=== PATIENT | female | born 1940 | race Caucasian/White ===

== ENCOUNTER → 2017-06-29 | Outpatient (CLI) | payer MEDICARE ==
[~2017-06-29] MED LIST: CALC-192 PO; CHOL2000 PO; DENO60DI IM; MULT-516 PO
[2017-06-29 15:51] LABS: CULTURE INDICATED? YES; MICROSCOPIC INDICATED
== END ==
LOC: STAR 14:39
PROVIDERS: ATTEND Orthopaedic Surgery
DX: Z01.818 Encounter for other preprocedural examination (principal); M19.011 Primary osteoarthritis, right shoulder
CPT/HCPCS: 81001; 87081; 87086; 93005

== ENCOUNTER 2017-07-04 10:30 | Inpatient (IN) | payer MEDICARE ==
[2017-06-29 15:15] VITALS: BP 134/76
[~2017-07-04] VITALS: Ht 157.5 cm; Wt 77.8 kg
[~2017-07-04 10:30] MED LIST changes: +CLINDAMYCIN 150 MG/ML, 6ML ONE
[2017-07-04] MEDS ORDERED: FENTANYL PF 100 MCG/2ML ONE ×2 (10:59→15:05)
[2017-07-04] MEDS ORDERED: SUCCINYLCHOLINE 20 MG/ML, 10ML ONE (10:59)
[2017-07-04] MEDS ORDERED: CEFAZOLIN 1,000 MG ONE (10:59)
[2017-07-04] MEDS ORDERED: MIDAZOLAM 1 MG/ML, 2ML ONE (10:59)
[2017-07-04] MEDS ORDERED: PROPOFOL 10 MG/ML, 20ML ONE (10:59)
[2017-07-04] MEDS ORDERED: ONDANSETRON 2MG/ML, 2ML ONE ×2 (10:59→16:37)
[2017-07-04] MEDS ORDERED: DEXAMETHASONE 4 MG/ML, 1ML ONE (10:59)
[2017-07-04] MEDS ORDERED: LIDOCAINE-MPF 2% ,5ML ONE (11:00)
[2017-07-04] MEDS ORDERED: BUPIVACAINE/PF 0.5% ONE (11:00)
[2017-07-04] MEDS ORDERED: VANCOMYCIN 1,500 MG in SODIUM CHLORIDE 0.9% 250 ML IV ONE (11:00)
[2017-07-04] MEDS ORDERED: VANCOMYCIN PER PHARMACY MC ONE (11:00)
[2017-07-04] MEDS ORDERED: LACTATED RINGERS 1,000 ML IV SCH (11:13)
[2017-07-04] MEDS ORDERED: LABETALOL 5MG/ML, 20ML ONE (11:13)
[2017-07-04] MEDS ORDERED: LIDOCAINE GEL 2%, 5ML ONE (11:16)
[2017-07-04] MEDS ORDERED: DOXYCYCLINE PO (11:27)
[2017-07-04] MEDS ORDERED: LIDOCAINE 1%, 2ML SQ PRN (11:30)
[2017-07-04] MEDS ORDERED: NEOSTIGMINE 1 MG/ML, 10ML ONE (12:57)
[2017-07-04] MEDS ORDERED: ROCURONIUM 10 MG/ML,10ML ONE (12:57)
[2017-07-04] MEDS ORDERED: PHENYLEPHRINE 10 MG/ML ONE (12:57)
[2017-07-04] MEDS ORDERED: GLYCOPYRROLATE 0.2MG/1ML, 5ML ONE (12:57)
[2017-07-04] MEDS ORDERED: OXYcodone/APAP 5/325MG TABLET PO PRN (13:30)
[2017-07-04] MEDS: HYDROcodone/APAP 5/325 TABLET PO SCH ×3 (13:30→21:30)
[2017-07-04] MEDS ORDERED: SENNA/DOCUSATE TABLET PO PRN (13:30)
[2017-07-04] MEDS ORDERED: morphine SULFATE 10 MG/ML, 1ML IV PRN (13:30)
[2017-07-04] MEDS ORDERED: BISACODYL 10 MG SUPP PR PRN (13:30)
[2017-07-04] MEDS ORDERED: ACETAMINOPHEN 325 MG TABLET PO PRN ×2 (13:30→14:00)
[2017-07-04] MEDS ORDERED: MAGNESIUM HYDROXIDE 8%, 30ML UDC PO PRN (13:30)
[2017-07-04] MEDS ORDERED: hydrALAzine 20 MG/ML, 1ML IV PRN (14:00)
[2017-07-04] MEDS ORDERED: FENTANYL PF 100 MCG/2ML IV PRN (14:00)
[2017-07-04] MEDS ORDERED: OXYcodone 5 MG/5 ML ORAL.SOL UDC PO PRN (14:00)
[2017-07-04] MEDS ORDERED: HYDROmorphone 1 MG/ML, 1ML IV PRN (14:00)
[2017-07-04] MEDS ORDERED: PROMETHAZINE 25 MG/ML, 1ML IV PRN (14:00)
[2017-07-04] MEDS ORDERED: ONDANSETRON 2MG/ML, 2ML IVPush PRN (14:00)
[2017-07-04] MEDS ORDERED: MIDAZOLAM 1 MG/ML, 2ML IV PRN (14:00)
[2017-07-04] MEDS ORDERED: MEPERIDINE/PF 25MG/0.5ML IVPush PRN (14:00)
[2017-07-04] MEDS ORDERED: ALBUTEROL/IPRATROPIUM 2.5MG/0.5MG, 3 ML NPPB PRN (14:00)
[2017-07-04] MEDS ORDERED: LABETALOL 5MG/ML, 20ML IV PRN (14:00)
[2017-07-04] MEDS ORDERED: EPHEDRINE 50 MG/ML, 1ML ONE (14:29)
[2017-07-04] MEDS: ONDANSETRON 2MG/ML, 2ML IV PRN (16:38)
[2017-07-04 17:00] VITALS: BP 122/61
[2017-07-04] MEDS ORDERED: DIPHENHYDRAMINE 50 MG/ML, 1ML IVPush PRN (17:30)
[2017-07-04] MEDS: D5%-0.45% NACL 1,000 ML IV SCH ×2 (18:10→23:35)
[2017-07-04] MEDS: CEFAZOLIN PMX 1GM/50ML 50 ML IVPB SCH (18:17)
[2017-07-04 19:30] VITALS: BP 102/55
[2017-07-04] MEDS: DOCUSATE 100 MG CAPSULE PO SCH (20:03)
[2017-07-04] MEDS: DOXYCYCLINE 100MG TABLET PO SCH (20:03)
[2017-07-04 23:43] VITALS: BP 113/57
[2017-07-05] MEDS: CEFAZOLIN PMX 1GM/50ML 50 ML IVPB SCH ×2 (02:36→09:39)
[2017-07-05] MEDS: HYDROcodone/APAP 5/325 TABLET PO SCH ×6 (02:41→22:21)
[2017-07-05] MEDS: ONDANSETRON 2MG/ML, 2ML IV PRN ×3 (02:41→19:57)
[2017-07-05 03:51] VITALS: BP 109/50
[2017-07-05] MEDS: DOCUSATE 100 MG CAPSULE PO SCH ×2 (07:53→20:09)
[2017-07-05] MEDS: DOXYCYCLINE 100MG TABLET PO SCH ×2 (07:53→20:09)
[2017-07-05] MEDS: D5%-0.45% NACL 1,000 ML IV SCH ×2 (07:54→17:53)
[2017-07-05 08:34] VITALS: BP 104/67
[2017-07-05 14:36] VITALS: BP 112/70
[2017-07-05 19:44] VITALS: BP 126/69
[2017-07-06 01:26] VITALS: BP 113/65
[2017-07-06] MEDS: HYDROcodone/APAP 5/325 TABLET PO SCH ×3 (02:18→11:31)
[2017-07-06] MEDS: ONDANSETRON 2MG/ML, 2ML IV PRN (02:18)
[2017-07-06] MEDS: D5%-0.45% NACL 1,000 ML IV SCH (05:08)
[2017-07-06 08:06] VITALS: BP 107/69
[2017-07-06] MEDS: DOXYCYCLINE 100MG TABLET PO SCH (08:55)
[2017-07-06] MEDS: DOCUSATE 100 MG CAPSULE PO SCH (08:55)
[2017-07-06 12:45] VITALS: BP 114/52
== END 2017-07-06 14:57 | disposition home or self-care (01) | DRG 483 ==
LOC: ORIP 10:30 → 4NOR 17:12 → DCLOUNGE 07-06 11:44
PROVIDERS: ADMIT Orthopaedic Surgery; ATTEND Orthopaedic Surgery
PROC: 0LS30ZZ Reposition Right Upper Arm Tendon, Open Approach (ICD-10-PCS; 2017-07-04)
PROC: 0RPJ04Z Removal of Internal Fixation Device from Right Shoulder Joint, Open Approach (ICD-10-PCS; 2017-07-04)
PROC: 0LQ10ZZ Repair Right Shoulder Tendon, Open Approach (ICD-10-PCS; 2017-07-04)
PROC: 0RRJ00Z Replacement of Right Shoulder Joint with Reverse Ball and Socket Synthetic Substitute, Open Approach (ICD-10-PCS; principal; 2017-07-04 13:30)
DX: M87.821 Other osteonecrosis, right humerus (principal); D69.6 Thrombocytopenia, unspecified; M19.011 Primary osteoarthritis, right shoulder
CPT/HCPCS: C1713; C1776; J0690; J1100; J2250; J2405; J2704; J2710; J3010; J3370; J3490; C1769; J0330; J2370; J7050; J7120

== ENCOUNTER → 2017-10-02 | Outpatient (CLI) | payer MEDICARE ==
[~2017-10-02] MED LIST changes: -CLINDAMYCIN 150 MG/ML, 6ML ONE; +DOXYCYCLINE PO
== END | disposition home or self-care (01) ==
LOC: CFH 12:06
PROVIDERS: ATTEND Genetic Counselor, MS
DX: E04.2 Nontoxic multinodular goiter (principal); R59.1 Generalized enlarged lymph nodes
CPT/HCPCS: 76536

== ENCOUNTER 2017-10-09 10:45 | Day surgery (SDC) | payer MEDICARE ==
[~2017-10-09] VITALS: Ht 157.5 cm; Wt 75.4 kg
[2017-10-09] MEDS ORDERED: SODIUM CHLORIDE 0.9% 1,000 ML IV SCH (11:12)
[2017-10-09 11:39] VITALS: BP 158/80
[2017-10-09] MEDS ORDERED: NALOXONE 1 MG/ML, 2ML ONE (12:10)
[2017-10-09] MEDS ORDERED: FENTANYL PF 100 MCG/2ML ONE (12:10)
[2017-10-09] MEDS ORDERED: FLUMAZENIL 0.1 MG/1 ML, 5ML ONE (12:10)
[2017-10-09] MEDS ORDERED: MIDAZOLAM 1 MG/ML, 5ML ONE ×2 (12:10)
== END 2017-10-09 14:30 ==
LOC: OUT 10:45
PROVIDERS: ATTEND Genetic Counselor, MS
DX: D47.09 Other mast cell neoplasms of uncertain behavior (principal)
CPT/HCPCS: 49180; 77012; 88305; 99156; J2250; J3010; J7030; 99157; J2310

== ENCOUNTER → 2017-11-21 | Outpatient (CLI) | payer MEDICARE ==
[2017-11-21 15:44] LABS: ALANINE AMINOTRANSFERASE 21 U/L (12-78); ALBUMIN 3.5 g/dL (3.4-5.0); ANION GAP 7 mmol/L (5-15); CALCIUM 9.5 mg/dL (8.5-10.1); CHLORIDE 111 mmol/L (98-107); CREATININE 0.87 mg/dL (0.55-1.02)
[2017-11-21 15:46] LABS: ALKALINE PHOSPHATASE 157 U/L (45-117); BILIRUBIN,TOTAL 0.6 mg/dL (0.2-1.0); TOTAL PROTEIN 7.2 g/dL (6.4-8.2)
== END | disposition home or self-care (01) ==
LOC: STAR 14:34
PROVIDERS: ATTEND Surgery
DX: Z01.818 Encounter for other preprocedural examination (principal); I21.9 Acute myocardial infarction, unspecified
CPT/HCPCS: 36415; 80053; 93005

== ENCOUNTER 2017-11-27 10:51 | Observation (INO) | payer MEDICARE ==
[~2017-11-27] VITALS: Ht 160 cm; Wt 74.0 kg
[~2017-11-27 10:51] MED LIST changes: +BUPIVACAINE/PF 0.25% ONE; +CEFAZOLIN 1,000 MG ONE; +FENTANYL PF 250 MCG/5ML ONE; +GLYCOPYRROLATE 0.4 MG/2 ML, 2ML ONE; +MIDAZOLAM 1 MG/ML, 2ML ONE; +NEOSTIGMINE 1 MG/ML, 10ML ONE; +PROPOFOL 10 MG/ML, 20ML ONE; +ROCURONIUM 10MG/ML,5ML ONE; +THROMBIN 5,000 UNIT VIAL TP ONE; +WATER-INJECTION,STERILE 10 ML IV ONE
[2017-11-27] MEDS ORDERED: LACTATED RINGERS 1,000 ML IV SCH (11:06)
[2017-11-27] MEDS ORDERED: hydrALAzine 20 MG/ML, 1ML IV PRN (11:30)
[2017-11-27] MEDS ORDERED: HYDROmorphone 1 MG/ML, 1ML IV PRN (11:30)
[2017-11-27] MEDS ORDERED: PROMETHAZINE 25 MG SUPP PR PRN (11:30)
[2017-11-27] MEDS ORDERED: ONDANSETRON ODT 8 MG PO ONE (11:30)
[2017-11-27] MEDS ORDERED: FENTANYL PF 100 MCG/2ML IV PRN (11:30)
[2017-11-27] MEDS ORDERED: OXYcodone 5 MG/5 ML ORAL.SOL UDC PO PRN (11:30)
[2017-11-27] MEDS ORDERED: LABETALOL 5MG/ML, 20ML IV PRN (11:30)
[2017-11-27] MEDS ORDERED: MORPHINE SULFATE 4 MG/ML, 1ML IVPush PRN (11:30)
[2017-11-27] MEDS ORDERED: MEPERIDINE/PF 25MG/0.5ML IVPush PRN (11:30)
[2017-11-27] MEDS ORDERED: PROMETHAZINE 25 MG/ML, 1ML IV PRN (11:30)
[2017-11-27] MEDS ORDERED: PROMETHAZINE 12.5 MG SUPP PR PRN (11:30)
[2017-11-27] MEDS ORDERED: ONDANSETRON ODT 8 MG PO PRN (11:30)
[2017-11-27] MEDS ORDERED: DEXAMETHASONE 4 MG/ML, 1ML ONE (11:34)
[2017-11-27] MEDS ORDERED: PHENYLEPHRINE 10 MG/ML ONE (12:01)
[2017-11-27] MEDS ORDERED: BUPIVACAINE/PF-EPI 0.25% 1:200K IM ONE (12:07)
[2017-11-27] MEDS ORDERED: ALBUTEROL SULFATE 2.5 MG/3 ML ONE (18:15)
[2017-11-27 20:20] VITALS: BP 123/61
[2017-11-27] MEDS: ACETAMINOPHEN 500 MG TABLET PO SCH (22:00)
[2017-11-27] MEDS ORDERED: ONDANSETRON 2MG/ML, 2ML IVPush PRN (22:00)
[2017-11-27] MEDS ORDERED: ALBUTEROL SULFATE 2.5 MG/3 ML NPPB PRN (22:00)
[2017-11-27] MEDS: IBUPROFEN 200 MG TABLET PO SCH (22:00)
[2017-11-27 23:58] VITALS: BP 119/67
[2017-11-28 03:29] VITALS: BP 104/63
[2017-11-28] MEDS: ACETAMINOPHEN 500 MG TABLET PO SCH ×2 (04:00→08:15)
[2017-11-28] MEDS: IBUPROFEN 200 MG TABLET PO SCH ×2 (06:00→11:00)
[2017-11-28 07:23] VITALS: BP 117/65
[2017-11-28] MEDS ORDERED: ACET-1600 PO (11:39)
[2017-11-28] MEDS ORDERED: IBUP-1222 PO (11:40)
== END 2017-11-28 12:05 | disposition home or self-care (01) ==
LOC: OUT 10:51 → 4NOR 19:15 → OUT 23:32 → 4NOR 23:38 → DCLOUNGE 11-28 11:48
PROVIDERS: ADMIT Surgery; ATTEND Surgery
DX: R59.0 Localized enlarged lymph nodes (principal); E04.2 Nontoxic multinodular goiter
CPT/HCPCS: 39402; 71045; 88184; 88185; 88305; 94640; G0378; J0690; J1100; J2250; J2370; J2704; J2710; J3010; J3490; J7120; Q0162; 96365; 96375

== ENCOUNTER 2018-04-08 14:30 | Emergency (ER) | payer MEDICARE ==
[~2018-04-08] VITALS: Ht 160 cm; Wt 75.0 kg
[~2018-04-08 14:30] MED LIST changes: +ACET-1600 PO; -BUPIVACAINE/PF 0.25% ONE; -CEFAZOLIN 1,000 MG ONE; -FENTANYL PF 250 MCG/5ML ONE; -GLYCOPYRROLATE 0.4 MG/2 ML, 2ML ONE; +IBUP-1222 PO; -MIDAZOLAM 1 MG/ML, 2ML ONE; -NEOSTIGMINE 1 MG/ML, 10ML ONE; -PROPOFOL 10 MG/ML, 20ML ONE; -ROCURONIUM 10MG/ML,5ML ONE; -THROMBIN 5,000 UNIT VIAL TP ONE; -WATER-INJECTION,STERILE 10 ML IV ONE
[2018-04-08 14:45] VITALS: BP 97/55
[2018-04-08] MEDS ORDERED: HYDROmorphone 2 MG/ML, 1ML ONE (15:08)
[2018-04-08] MEDS ORDERED: ONDANSETRON ODT 4 MG ONE (15:08)
[2018-04-08] MEDS ORDERED: ONDANSETRON ODT 4 MG PO ONE (16:00)
[2018-04-08] MEDS ORDERED: HYDROmorphone 2 MG/ML, 1ML IM ONE (16:00)
[2018-04-08] MEDS ORDERED: OXYcodone/APAP 5/325MG TABLET PO ONE (16:00)
[2018-04-08] MEDS ORDERED: OXYcodone/APAP 5/325MG TABLET ONE (16:02)
== END 2018-04-08 16:51 | disposition home or self-care (01) ==
LOC: ED 16:30
DX: S42.232A 3-part fracture of surgical neck of left humerus, initial encounter for closed fracture (principal); W01.0XXA Fall on same level from slipping, tripping and stumbling without subsequent striking against object, initial encounter; Y93.89 Activity, other specified; Y92.009 Unspecified place in unspecified non-institutional (private) residence as the place of occurrence of the external cause; Y99.8 Other external cause status
CPT/HCPCS: 29105; 73030; 73060; 96372; 99284; J1170; Q0162

== ENCOUNTER → 2018-04-09 | Outpatient (CLI) | payer MEDICARE | END | disposition home or self-care (01) | LOC: RAD 18:23 | PROVIDERS: ATTEND Orthopaedic Surgery | DX: S42.295A Other nondisplaced fracture of upper end of left humerus, initial encounter for closed fracture (principal); X58.XXXA Exposure to other specified factors, initial encounter; Y93.89 Activity, other specified; Y92.89 Other specified places as the place of occurrence of the external cause; Y99.8 Other external cause status ==

== ENCOUNTER → 2018-04-18 | Outpatient (CLI) | payer MEDICARE | END | disposition home or self-care (01) | LOC: STAR 10:53 | PROVIDERS: ATTEND Orthopaedic Surgery | DX: Z01.818 Encounter for other preprocedural examination (principal); S42.295A Other nondisplaced fracture of upper end of left humerus, initial encounter for closed fracture; X58.XXXA Exposure to other specified factors, initial encounter; Y93.89 Activity, other specified; Y92.89 Other specified places as the place of occurrence of the external cause; Y99.8 Other external cause status | CPT/HCPCS: 87081; 93005 ==

== ENCOUNTER 2018-04-24 05:18 | Inpatient (IN) | payer MEDICARE ==
[2018-04-18 11:39] VITALS: BP 156/79
[~2018-04-24] VITALS: Ht 160 cm; Wt 78.1 kg
[2018-04-24] MEDS ORDERED: LACTATED RINGERS 1,000 ML IV SCH (06:01)
[2018-04-24] MEDS ORDERED: CLINDAMYCIN 150 MG/ML, 6ML ONE (06:04)
[2018-04-24] MEDS ORDERED: BUPIVACAINE/PF 0.5% ONE ×2 (06:04→07:45)
[2018-04-24] MEDS ORDERED: ACET325C PO (06:04)
[2018-04-24] MEDS ORDERED: FENTANYL PF 100 MCG/2ML ONE (06:24)
[2018-04-24] MEDS ORDERED: MIDAZOLAM 1 MG/ML, 2ML ONE (06:24)
[2018-04-24] MEDS ORDERED: VANCOMYCIN PER PHARMACY MC ONE (06:30)
[2018-04-24] MEDS ORDERED: VANCOMYCIN 1,400 MG in SODIUM CHLORIDE 0.9% 250 ML IV ONE (06:30)
[2018-04-24] MEDS ORDERED: ACETAMINOPHEN 500 MG TABLET PO ONE (06:30)
[2018-04-24] MEDS ORDERED: GABAPENTIN 300 MG CAPSULE PO ONE (06:30)
[2018-04-24] MEDS ORDERED: ONDANSETRON ODT 8 MG PO ONE (06:30)
[2018-04-24] MEDS ORDERED: LIDOCAINE-MPF 1%, 2ML INFIL ONE (06:30)
[2018-04-24] MEDS ORDERED: SCOPOLAMINE PATCH, 1.5MG PATCH.TD72 TD ONE (06:30)
[2018-04-24] MEDS: D5%-0.45% NACL 1,000 ML IV SCH ×2 (06:53→15:43)
[2018-04-24] MEDS ORDERED: MAGNESIUM HYDROXIDE 8%, 30ML UDC PO PRN (07:00)
[2018-04-24] MEDS ORDERED: BISACODYL 10 MG SUPP PR PRN (07:00)
[2018-04-24] MEDS ORDERED: ONDANSETRON 2MG/ML, 2ML IV PRN ×2 (07:00→07:30)
[2018-04-24] MEDS ORDERED: ALUMINUM/MAG/SIMETHICONE 30 ML UDC PO PRN (07:00)
[2018-04-24] MEDS ORDERED: SENNA/DOCUSATE TABLET PO PRN (07:00)
[2018-04-24] MEDS ORDERED: morphine SULFATE 10 MG/ML, 1ML IV PRN (07:00)
[2018-04-24] MEDS ORDERED: ACETAMINOPHEN 325 MG TABLET PO PRN (07:00)
[2018-04-24] MEDS ORDERED: PROMETHAZINE 25 MG/ML, 1ML IM PRN (07:00)
[2018-04-24] MEDS ORDERED: FENTANYL PF 100 MCG/2ML IV PRN (07:30)
[2018-04-24] MEDS ORDERED: hydrALAzine 20 MG/ML, 1ML IV PRN (07:30)
[2018-04-24] MEDS ORDERED: ALBUTEROL/IPRATROPIUM 2.5MG/0.5MG, 3 ML NPPB PRN (07:30)
[2018-04-24] MEDS ORDERED: OXYcodone 5 MG/5 ML ORAL.SOL UDC PO PRN (07:30)
[2018-04-24] MEDS ORDERED: LABETALOL 5MG/ML, 20ML IV PRN (07:30)
[2018-04-24] MEDS ORDERED: MIDAZOLAM 1 MG/ML, 2ML IV PRN (07:30)
[2018-04-24] MEDS ORDERED: HYDROmorphone 1 MG/ML, 1ML IV PRN (07:30)
[2018-04-24] MEDS ORDERED: MEPERIDINE/PF 25MG/0.5ML IVPush PRN (07:30)
[2018-04-24] MEDS ORDERED: PROMETHAZINE 25 MG SUPP PR PRN (07:30)
[2018-04-24] MEDS ORDERED: LIDOCAINE-MPF 2% ,5ML ONE (07:45)
[2018-04-24] MEDS ORDERED: ROCURONIUM 10MG/ML,5ML ONE (08:01)
[2018-04-24] MEDS ORDERED: NEOSTIGMINE 1 MG/ML, 10ML ONE (08:01)
[2018-04-24] MEDS ORDERED: GLYCOPYRROLATE 0.2MG/1ML, 5ML ONE (08:01)
[2018-04-24] MEDS ORDERED: PROPOFOL 10 MG/ML, 20ML ONE (08:01)
[2018-04-24] MEDS ORDERED: DEXAMETHASONE 4 MG/ML, 1ML ONE (08:01)
[2018-04-24] MEDS ORDERED: SUCCINYLCHOLINE 20 MG/ML, 10ML ONE (08:01)
[2018-04-24] MEDS ORDERED: METHYLENE BLUE 10 MG/ML 10ML ONE (08:01)
[2018-04-24] MEDS ORDERED: EPHEDRINE 50 MG/ML, 1ML ONE (08:01)
[2018-04-24] MEDS: DOCUSATE 100 MG CAPSULE PO SCH ×2 (09:00→20:09)
[2018-04-24] MEDS ORDERED: ALBUTEROL/IPRATROPIUM 2.5MG/0.5MG, 3 ML ONE (09:55)
[2018-04-24 10:45] VITALS: BP 126/66
[2018-04-24] MEDS: HYDROcodone/APAP 5/325 TABLET PO SCH ×5 (11:00→23:15)
[2018-04-24 12:22] VITALS: BP 96/48
[2018-04-24] MEDS: CEFAZOLIN PMX 1GM/50ML 50 ML IVPB SCH ×2 (15:04→22:59)
[2018-04-24 16:50] VITALS: BP 104/58
[2018-04-24 20:22] VITALS: BP 101/53
[2018-04-25 00:03] VITALS: BP 134/68
[2018-04-25] MEDS: D5%-0.45% NACL 1,000 ML IV SCH ×2 (02:53→11:55)
[2018-04-25 03:38] VITALS: BP 122/67
[2018-04-25] MEDS: HYDROcodone/APAP 5/325 TABLET PO SCH ×3 (06:39→15:03)
[2018-04-25] MEDS: CEFAZOLIN PMX 1GM/50ML 50 ML IVPB SCH (06:39)
[2018-04-25 07:26] VITALS: BP 110/57
[2018-04-25] MEDS: DOCUSATE 100 MG CAPSULE PO SCH (08:21)
[2018-04-25 12:53] VITALS: BP 109/55
== END 2018-04-25 16:00 | disposition home or self-care (01) | DRG 483 ==
LOC: ORIP 05:18 → 4NOR 10:36
PROVIDERS: ADMIT Orthopaedic Surgery; ATTEND Orthopaedic Surgery
PROC: 0LS40ZZ Reposition Left Upper Arm Tendon, Open Approach (ICD-10-PCS; 2018-04-24)
PROC: 0RRK00Z Replacement of Left Shoulder Joint with Reverse Ball and Socket Synthetic Substitute, Open Approach (ICD-10-PCS; principal; 2018-04-24 07:00)
DX: S42.242A 4-part fracture of surgical neck of left humerus, initial encounter for closed fracture (principal); M19.019 Primary osteoarthritis, unspecified shoulder; W18.39XA Other fall on same level, initial encounter; Y93.89 Activity, other specified; Y92.89 Other specified places as the place of occurrence of the external cause; Y99.8 Other external cause status; J45.909 Unspecified asthma, uncomplicated; M81.0 Age-related osteoporosis without current pathological fracture; Z88.8 Allergy status to other drugs, medicaments and biological substances
CPT/HCPCS: 94640; C1713; C1776; G0378; J0690; J1100; J2250; J2405; J2704; J2710; J3010; J3370; J3490; J7620; Q0162; C1769; J0330; J7050; J7120; Q9968

== ENCOUNTER → 2018-07-23 | Outpatient (CLI) | payer MEDICARE ==
[~2018-07-23] MED LIST changes: +ACET325C3 PO; +OMNIPAQUE 350 MG/ML, 75ML BOTTLE ONE
== END | disposition home or self-care (01) ==
LOC: CFH 14:54
PROVIDERS: ATTEND Genetic Counselor, MS
DX: R59.1 Generalized enlarged lymph nodes (principal)
CPT/HCPCS: 71260; Q9967

== ENCOUNTER 2019-01-28 09:04 | Outpatient (CLI) | payer MEDICARE ==
[~2019-01-28 09:04] MED LIST changes: -OMNIPAQUE 350 MG/ML, 75ML BOTTLE ONE
== END 2019-01-28 23:59 | disposition home or self-care (01) ==
LOC: CFH 09:04
PROVIDERS: ATTEND Dermatology
DX: M89.8X8 Other specified disorders of bone, other site (principal); D48.5 Neoplasm of uncertain behavior of skin; J32.0 Chronic maxillary sinusitis
CPT/HCPCS: 70450

== ENCOUNTER → 2019-06-10 | Outpatient (CLI) | payer MEDICARE ==
[~2019-06-10] MED LIST changes: +OMNIPAQUE 350 MG/ML, 100ML BOTTLE ONE
== END | disposition home or self-care (01) ==
LOC: RAD 11:10
PROVIDERS: ATTEND Neurological Surgery
DX: D33.2 Benign neoplasm of brain, unspecified (principal); J45.909 Unspecified asthma, uncomplicated; M19.90 Unspecified osteoarthritis, unspecified site
CPT/HCPCS: 70496; 78306; A9503; Q9967

== ENCOUNTER → 2019-07-22 | Outpatient (CLI) | payer MEDICARE | END | disposition home or self-care (01) | LOC: CFH 12:03 → EDSTATUS 13:30 | PROVIDERS: ATTEND Internal Medicine Hematology & Oncology | DX: Q82.2 Congenital cutaneous mastocytosis (principal); R59.0 Localized enlarged lymph nodes; K57.30 Diverticulosis of large intestine without perforation or abscess without bleeding; K80.20 Calculus of gallbladder without cholecystitis without obstruction; R16.1 Splenomegaly, not elsewhere classified; D73.89 Other diseases of spleen | CPT/HCPCS: 71260; 74177; 82565; Q9967 ==

== ENCOUNTER → 2019-07-29 | Outpatient (CLI) | payer MEDICARE ==
[~2019-07-29] MED LIST changes: +ANTI HISTAMINE PO; -OMNIPAQUE 350 MG/ML, 100ML BOTTLE ONE
[2019-07-29 15:34] LABS: BASOPHILS # (AUTO) 0.05 x10^3/uL (0-0.1); BASOPHILS % (AUTO) 1 % (0-1); EOSINOPHILS # (AUTO) 0.22 x10^3/uL (0-0.4); EOSINOPHILS % (AUTO) 2 % (1-7); LYMPHOCYTES # (AUTO) 2.07 x10^3/uL (1-3.4); LYMPHOCYTES % (AUTO) 18 % (22-44); MD NO; MEAN CORPUSCULAR HGB CONC 33.1 g/dL (32.4-35.8); MEAN CORPUSCULAR VOLUME 81.5 fL (80-100); MEAN PLATELET VOLUME 12.4 fL (7.4-10.4); MONOCYTES % (AUTO) 5 % (2-9); NEUTROPHILS # (AUTO) 8.31 x10^3/uL (1.8-6.8); NEUTROPHILS % (AUTO) 74 % (42-75); PLATELET COUNT 153 x10^3/uL (130-400); RED BLOOD COUNT 5.32 x10^6/uL (3.82-5.3); RED CELL DISTRIBUTION WIDTH 14.3 % (9.6-15.2)
[2019-07-29 15:36] LABS: MICROSCOPIC NOT IND
[2019-07-29 15:40] LABS: CULTURE INDICATED? NO
[2019-07-29 15:45] LABS: INTERNATIONAL NORMALIZED RATIO 0.99 (0.93-1.1); PROTHROMBIN TIME 10.5 Seconds (9.6-11.5)
[2019-07-29 15:46] LABS: ALANINE AMINOTRANSFERASE 15 U/L (12-78); ALBUMIN 3.7 g/dL (3.4-5.0); ANION GAP 6 mmol/L (5-15); CALCIUM 8.8 mg/dL (8.5-10.1); CHLORIDE 112 mmol/L (98-107)
[2019-07-29 15:49] LABS: ALKALINE PHOSPHATASE 174 U/L (45-117); BILIRUBIN,TOTAL 0.8 mg/dL (0.2-1.0); TOTAL PROTEIN 7.6 g/dL (6.4-8.2)
== END | disposition home or self-care (01) ==
LOC: STAR 14:16
PROVIDERS: ATTEND Neurological Surgery
DX: Z01.812 Encounter for preprocedural laboratory examination (principal); Z01.810 Encounter for preprocedural cardiovascular examination; Z01.818 Encounter for other preprocedural examination; I21.9 Acute myocardial infarction, unspecified; D33.2 Benign neoplasm of brain, unspecified; R79.1 Abnormal coagulation profile; R82.90 Unspecified abnormal findings in urine; R94.31 Abnormal electrocardiogram [ECG] [EKG]
CPT/HCPCS: 36415; 80053; 81003; 85025; 85610; 85730; 93005

== ENCOUNTER → 2020-04-20 | Outpatient (CLI) | payer MEDICARE ==
[~2020-04-20] MED LIST changes: +GADOTERATE 10 MMOL/20 ML SYR ONE; +LEVE500T53 PO; +OXYC5CAP2 PO
== END | disposition home or self-care (01) ==
LOC: RAD 08:29
PROVIDERS: ATTEND Physician Assistant Surgical
DX: G93.89 Other specified disorders of brain (principal); J34.89 Other specified disorders of nose and nasal sinuses; H70.93 Unspecified mastoiditis, bilateral; D33.2 Benign neoplasm of brain, unspecified
CPT/HCPCS: 70450; 70553; A9575

== ENCOUNTER → 2020-08-10 | Outpatient (CLI) | payer MEDICARE ==
[~2020-08-10] MED LIST changes: -GADOTERATE 10 MMOL/20 ML SYR ONE
== END | disposition home or self-care (01) ==
LOC: RAD 11:22
PROVIDERS: ATTEND Internal Medicine Endocrinology, Diabetes & Metabolism
DX: R74.8 Abnormal levels of other serum enzymes (principal)
CPT/HCPCS: 78306; A9503